=== PATIENT | male | born 1975 | race Caucasian/White ===

== ENCOUNTER 2018-04-06 07:38 | Emergency (ER) | payer SELFPAY ==
[2018-04-06 07:46] VITALS: BP 136/84
[2018-04-06] MEDS: Ketorolac 60 MG/2 ML SDV IM ONE (07:54)
--- NOTE | 2018-04-06 09:57 | EDM.PDOC ---
ED HPI GENERAL MEDICAL PROBLEM - General Chief Complaint: Back Pain or Injury Stated Complaint: FALL Time Seen by Provider: 04/06/18 07:44 Source of Information: Reports: Patient History Limitations: Reports: No Limitations - History of Present Illness INITIAL COMMENTS - FREE TEXT/NARRATIVE: Wilson is a 43 yo male who presents to the ER this morning with complaints of low back pain after slipping down a couple of stairs last night. He admits he was out drinking at a local bar and when he came home he must have hit his low back on the steps. He denies any loss of consciousness. No current headache or trauma to the head. States he went to bed and after about an hour his back was giving him a lot of discomfort. He decided this morning to come in to have it evaluated. States he feels as if he is having muscle spasms in his back. Admits walking seems to give him relief and when he is sitting or laying down it is the worst. Denies any saddle anesthesia. States he has no numbness or tingling in the legs. No weakness. Location: Reports: Back Middle Back Pain Score (Numeric/FACES): 10 - Related Data Allergies Allergy/AdvReac Type Severity Reaction Status Date / Time No Known Allergies Allergy Verified 04/06/18 07:56 Home Meds: Home Meds . [No Known Home Meds] 04/06/18 [History] Past Medical History - Past Health History Medical/Surgical History: Denies Medical/Surgical History - Past Surgical History GI Surgical History: Reports: Colostomy, Other (See Below) Other GI Surgeries/Procedures: colostomy with recersal as a baby Social & Family History - Family History Family Medical History: Noncontributory - Tobacco Use Smoking Status *Q: Never Smoker - Caffeine Use Caffeine Use: Reports: None - Alcohol Use Days Per Week of Alcohol Use: 1 Number of Drinks Per Day: 6 Total Drinks Per Week: 6 - Recreational Drug Use Recreational Drug Use: No ED ROS GENERAL - Review of Systems Review Of Systems: ROS reveals no pertinent complaints other than HPI. Musculoskeletal: Reports: Back Pain, Muscle Stiffness Neurological: Reports: No Symptoms. Denies: Confusion, Dizziness, Headache, Numbness, Paresthesia, Syncope, Tingling, Difficulty Walking, Weakness, Change in Speech ED EXAM,LOWER BACK PAIN/INJURY - Physical Exam Exam: See Below Exam Limited By: No Limitations General Appearance: Alert, No Apparent Distress Eye Exam: Bilateral Eye: EOMI, Normal Inspection Ears: Normal External Exam, Normal Canal, Hearing Grossly Normal Nose: Normal Inspection, Normal Mucosa, No Blood Throat/Mouth: Normal Inspection, Normal Lips, Normal Teeth, Normal Gums, Normal Oropharynx, Normal Voice, No Airway Compromise Head: Atraumatic, Normocephalic Neck: Normal Inspection, Supple, Non-Tender, Full Range of Motion. No: Tender Lateral, Tender Midline Respiratory/Chest: No Respiratory Distress, Normal Breath Sounds, No Accessory Muscle Use Cardiovascular: Regular Rate, Rhythm, No Murmur Back Exam: Full Range of Motion (increased discomfort with flexion and left lateral rotation of lumbar spine), Muscle Spasm, Paraspinal Tenderness, Vertebral Tenderness (L4-L5) Neurological: Alert, Normal Mood/Affect, Normal Dorsiflexion, CN II-XII Intact, Normal Plantar Flexion, Normal Reflexes, No Motor/Sensory Deficits, Oriented x 3 DTR - Lower Extremities: 1+: Knee (R), Knee (L), Ankle (R), Ankle (L) Psychiatric: Normal Affect, Normal Mood Skin Exam: Warm, Dry, Intact, Normal Color Course - Vital Signs Last Recorded V/S: Last Vital Signs Temp 98.2 F 04/06/18 07:44 Pulse 110 H 04/06/18 07:44 Resp 20 04/06/18 07:44 BP 136/84 04/06/18 07:44 Pulse Ox 95 04/06/18 07:44 - Orders/Labs/Meds Orders: Active Orders 24 hr Category Date Time Status Lumbar Spine 2 or 3V [CR] Stat Exams 04/06/18 07:49 Taken Meds: Medications Discontinued Medications Generic Name Dose Route Start Last Admin Trade Name Antonyq PRN Reason Stop Dose Admin Ketorolac Tromethamine 60 mg 04/06/18 07:48 04/06/18 07:54 Toradol IM 04/06/18 07:49 60 mg ONETIME ONE Administration Orphenadrine Citrate 60 mg 04/06/18 08:15 04/06/18 08:13 Norflex IM 60 mg Q12H LYN Administration Departure - Departure Time of Disposition: 09:51 Disposition: Home, Self-Care 01 Clinical Impression: Anterolisthesis - Discharge Information Instructions: Spondylolisthesis, Muscle Strain, [id number] Referrals: Jh Regalado MD [Primary Care Provider] - Forms: ED Department Discharge Additional Instructions: 1) X-ray report showed Grade 1 anterolisthesis 2) Will treat conservatively 3) Physical therapy form given and advise scheduling appointment 4) Toradol 10mg - 1 tablet every 8 hours as needed for discomfort 5) Flexeril 10mg - 1 tablet every 8 hours as needed for muscle spasms. 6) if any worsening of symptoms, numbness, tingling, loss of bowel or bladder function, advise returning immediately for reeavuation. 7) May ice area 20 minutes at a time, 5 times a day. 8) Medications called into [facility] - Problem List & Annotations (1) Anterolisthesis SNOMED Code(s): 477627195 Code(s): M43.10 - SPONDYLOLISTHESIS, SITE UNSPECIFIED Status: Acute Current Visit: Yes - Problem List Review Problem List Initiated/Reviewed/Updated: Yes - My Orders Last 24 Hours: My Active Orders 04/06/18 07:49 Lumbar Spine 2 or 3V [CR] Stat - Assessment/Plan Last 24 Hours: My Active Orders 04/06/18 07:49 Lumbar Spine 2 or 3V [CR] Stat Plan: X-ray confirmed anterolisthesis Grade 1 and will initially treat conservatively. Physical therapy referral. Toradol and flexeril for discomfort and muscle spasm. Wilson is doing a lot better with IM injections of Toradol and Norflex, states he is ready to go home. Was able to void without any complications. Will discharge home at this time. See additional instructions.
== END 2018-04-06 10:10 | disposition home or self-care (01) ==
LOC: CC.ED 07:38
DX: M43.16 Spondylolisthesis, lumbar region (principal)
CPT/HCPCS: 72100; 96372; 99283; J1885; J2360

== ENCOUNTER 2019-07-25 18:05 | Emergency (ER) | payer BC, OTHER ==
[2019-07-25] MEDS ORDERED: Acetaminophen/HYDROcodone 325-5 MG Tab PO ONE (18:06)
[2019-07-25] MEDS: Take Home: Acetaminophen/HYDROcodone 325-5 MG, 2 Tab Pack PO ONE (19:15)
--- NOTE | 2019-07-25 20:58 | EDM.PDOC ---
ED HPI GENERAL MEDICAL PROBLEM - General Chief Complaint: Genitourinary Problem Stated Complaint: right groin pain Time Seen by Provider: 07/25/19 18:25 Source of Information: Reports: Patient History Limitations: Reports: No Limitations - History of Present Illness INITIAL COMMENTS - FREE TEXT/NARRATIVE: Wilson is a 44 yo male who presents to the ED with concerns of right groin pain. He admits he was wrestling at practice when a kid fell on him. He admits he fell on the outside of his femur as he was stepping away and is concerned he strained or tore his groin muscle. Patient states he heard a pop. Admits when he tries to flex his hip or rotate it out the pain worsens. Is able to bear weight but seems to get worse with ambulation. Right Groin Pain Score (Numeric/FACES): 6 - Related Data Allergies Allergy/AdvReac Type Severity Reaction Status Date / Time No Known Allergies Allergy Verified 07/25/19 18:47 Home Meds: Home Meds . [No Known Home Meds] 04/06/18 [History] Past Medical History - Past Health History Medical/Surgical History: Denies Medical/Surgical History - Past Surgical History GI Surgical History: Reports: Colostomy, Other (See Below) Other GI Surgeries/Procedures: colostomy with recersal as a baby Social & Family History - Family History Family Medical History: Noncontributory - Tobacco Use Smoking Status *Q: Former Smoker Used Tobacco, but Quit: Yes Month/Year Tobacco Last Used: Unsure Second Hand Smoke Exposure: No - Caffeine Use Caffeine Use: Reports: None Review of Systems - Review of Systems Review Of Systems: Comprehensive ROS is negative, except as noted in HPI. ED EXAM, GENERAL - Physical Exam Exam: See Below Exam Limited By: No Limitations General Appearance: Alert, No Apparent Distress Extremities: No Pedal Edema, Other (tenderness with palpation over groin along crease/ joint of hip on the right. Pain noticed with adduction with resistance. No external rotation of hip. Non tender to lateral aspect of hip. Gait coordinated with favoring of right lower extremity. ) Neurological: Alert, Oriented, No Motor/Sensory Deficits Psychiatric: Normal Affect, Normal Mood Skin Exam: Warm, Dry, Intact Course - Vital Signs Last Recorded V/S: Last Vital Signs Temp 97.6 F 07/25/19 18:15 Pulse 106 H 07/25/19 18:15 Resp 20 07/25/19 18:15 BP 103/43 L 07/25/19 18:15 Pulse Ox 98 07/25/19 18:15 - Orders/Labs/Meds Orders: Active Orders 24 hr Category Date Time Status Hip Min 2V or 3V Rt [CR] Stat Exams 07/25/19 18:35 Taken Meds: Medications Discontinued Medications Generic Name Dose Route Start Last Admin Trade Name Jodie PRN Reason Stop Dose Admin Hydrocodone Bitart/Acetaminophen 2 packet 07/25/19 19:03 07/25/19 19:15 Take Home: Acetaminophen/Hydrocod, 2 Tab Pack PO 07/25/19 19:04 2 packet ONETIME ONE Administration Departure - Departure Time of Disposition: 19:55 Disposition: Home, Self-Care 01 Clinical Impression: Injury of adductor muscle and tendon of right thigh Qualifiers: Encounter type: initial encounter Qualified Code(s): S76.201A - Unspecified injury of adductor muscle, fascia and tendon of right thigh, initial encounter - Discharge Information Instructions: Adductor Muscle Strain Referrals: Jh Regalado MD [Primary Care Provider] - Forms: ED Department Discharge Additional Instructions: 1) Ice 20 minutes at a time, at least 5 times a day 2) Activity modifications - no participating in wrestling 3) NSAID's recommended 3 times a day - 400 - 800mg at a time of ibuprofen, advise taking with food 4) [place] 5/325 - 1 tablet every 6 hours as needed for break thru pain 5) Follow up if symptoms persist or worsen. 6) Form given for physical therapy. Sepsis Event Note - Evaluation Sepsis Screening Result: No Definite Risk - Focused Exam Vital Signs: Vital Signs Temp Pulse Resp BP Pulse Ox 07/25/19 18:15 97.6 F 106 H 20 103/43 L 98 Date Exam was Performed: 07/25/19 Time Exam was Performed: 20:52 - Problem List & Annotations (1) Injury of adductor muscle and tendon of right thigh SNOMED Code(s): 037772478 Code(s): S76.201A - UNSP INJURY OF ADDUCTOR MUSC/FASC/TEND RIGHT THIGH, INIT Status: Acute Qualifiers: Encounter type: initial encounter Qualified Code(s): S76.201A - Unspecified injury of adductor muscle, fascia and tendon of right thigh, initial encounter - My Orders Last 24 Hours: My Active Orders 07/25/19 18:35 Hip Min 2V or 3V Rt [CR] Stat - Assessment/Plan Last 24 Hours: My Active Orders 07/25/19 18:35 Hip Min 2V or 3V Rt [CR] Stat Plan: X-ray of the right hip was negative. Discussed conservative treatment initially as mainstay of treatment. Referral to physical therapy. Discussed use of crutches, which he declined.
== END 2019-07-25 19:15 | disposition home or self-care (01) ==
LOC: CC.ED 18:05
DX: S76.201A Unspecified injury of adductor muscle, fascia and tendon of right thigh, initial encounter (principal); W50.0XXA Accidental hit or strike by another person, initial encounter; Y93.72 Activity, wrestling
CPT/HCPCS: 99283-25; A9270-GY

== ENCOUNTER 2021-02-15 16:10 | Emergency (ER) | payer OTHER ==
[2021-02-15 16:51] LABS: CHLORIDE,CL 102 mEq/L (98-106); SODIUM,NA 141 mEq/L (136-145)
--- NOTE | 2021-02-15 16:59 | EDM.PDOC ---
ED HPI GENERAL MEDICAL PROBLEM - General Chief Complaint: Abdominal Pain Stated Complaint: RLQ abdominal pain and diarrhea Time Seen by Provider: 02/15/21 16:16 Source of Information: Reports: Patient History Limitations: Reports: No Limitations - History of Present Illness INITIAL COMMENTS - FREE TEXT/NARRATIVE: This patient is a 46 year old male patient that presents to the ER with girlfriend and mother. The patient reports that last night at about 11pm he started having RLQ abdominal pain. Patient reports he has been having some constipation. Patient reports that he called his PCP today and was instructed to take Miralax. He reports after taking, his abdominal pain stayed the same and now he has diarrhea. Patient reports he was at the [place] this morning and his abdominal pain became worse. He reports he went to [facility], waited 1 hour in waiting room and left to come here. Patient reports some nausea. Patient denies v, f, chest pain, shortness of breath, back pain, urinary changes. Onset Date: 02/14/21 Onset Time: 23:00 Location: Reports: Abdomen Quality: Reports: Stabbing Severity: Mild Improves with: Reports: None Worsens with: Reports: None Associated Symptoms: Reports: Nausea/Vomiting. 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 [No Known Home Meds] 04/06/18 [History] Past Medical History - Past Health History Medical/Surgical History: Denies Medical/Surgical History Gastrointestinal History: Reports: Chronic Constipation - Past Surgical History GI Surgical History: Reports: Colostomy, Other (See Below) Other GI Surgeries/Procedures: colostomy with reversal as a baby Musculoskeletal Surgical History: Reports: Other (See Below) Other Musculoskeletal Surgeries/Procedures:: knee surgery Social & Family History - Family History Family Medical History: No Pertinent Family History - Tobacco Use Tobacco Use Status *Q: Unknown Ever Used Tobacco - Caffeine Use Caffeine Use: Reports: None ED ROS GENERAL - Review of Systems Review Of Systems: See Below Constitutional: Reports: No Symptoms HEENT: Reports: No Symptoms Respiratory: Reports: No Symptoms Cardiovascular: Reports: No Symptoms Endocrine: Reports: No Symptoms GI/Abdominal: Reports: Abdominal Pain, Constipation, Diarrhea (after Miralax), Nausea. Denies: Bloody Stool, Decreased Appetite, Distension, Flatus, Hematemesis, Vomiting : Reports: No Symptoms Musculoskeletal: Reports: No Symptoms Skin: Reports: No Symptoms Neurological: Reports: No Symptoms Psychiatric: Reports: No Symptoms Hematologic/Lymphatic: Reports: No Symptoms Immunologic: Reports: No Symptoms ED EXAM, GI/ABD - Physical Exam Exam: See Below Exam Limited By: No Limitations General Appearance: Alert, WD/WN, No Apparent Distress Eyes: Bilateral: Normal Appearance Ears: Normal External Exam, Normal Canal, Hearing Grossly Normal, Normal TMs Nose: Normal Inspection, Normal Mucosa, No Blood Throat/Mouth: Normal Inspection, Normal Lips, Normal Teeth, Normal Gums, Normal Oropharynx, Normal Voice, No Airway Compromise Head: Atraumatic, Normocephalic Neck: Normal Inspection, Supple, Non-Tender, Full Range of Motion Respiratory/Chest: No Respiratory Distress, Lungs Clear, Normal Breath Sounds, No Accessory Muscle Use Cardiovascular: Normal Peripheral Pulses, Regular Rate, Rhythm, No Edema, No Gallop, No JVD, No Murmur, No Rub GI/Abdominal Exam: Normal Bowel Sounds, Soft, No Organomegaly, No Distention, No Abnormal Bruit, No Mass, Pelvis Stable, Tender (RLQ, LLQ. ), Other (previous abd surgeries, colonoscopy with reversal. ). No: Distended, Guarding, Rigid, Rebound, Hepatomegaly (Male) Exam: Deferred Rectal (Males) Exam: Deferred Back Exam: Normal Inspection, Full Range of Motion. No: CVA Tenderness (L), CVA Tenderness (R) Extremities: Normal Inspection, Normal Range of Motion, Non-Tender, No Pedal Edema, Normal Capillary Refill Neurological: Alert, Oriented, Normal Cognition, Normal Gait, No Motor/Sensory Deficits Psychiatric: Normal Affect, Normal Mood Skin Exam: Warm, Dry, Intact, Normal Color, No Rash Lymphatic: No Adenopathy Course - Vital Signs Last Recorded V/S: Last Vital Signs Temp 96.9 F 02/15/21 16:15 Pulse 72 02/15/21 16:15 Resp 18 02/15/21 16:15 BP 154/93 H 02/15/21 16:15 Pulse Ox 96 02/15/21 16:15 - Orders/Labs/Meds Orders: Active Orders 24 hr Category Date Time Status Abdomen Pelvis w Cont [CT] Stat Exams 02/15/21 16:51 Taken Sodium Chloride 0.9% [Normal Saline] 500 ml Med 02/15/21 17:00 Active IV .BOLUS Medication Orders Sodium Chloride (Normal Saline) 500 mls @ 500 mls/hr IV .BOLUS LYN Last Admin: 02/15/21 17:46 Dose: 500 mls/hr Documented by: PAOLA Labs: Laboratory Tests 02/15/21 02/15/21 02/15/21 Range/Units 16:17 16:35 16:35 WBC 8.1 (4.0-11.0) 10^3/uL RBC 5.08 (4.50-6.00) x10^6/uL Hgb 14.8 (14.0-18.0) g/dL Hct 43.6 (42.0-52.0) % MCV 85.8 (83.0-97.0) fL MCH 29.1 (27.0-32.0) pg MCHC 33.9 (32.0-36.0) g/dL RDW Coeff of Jeromy 11.7 (11.0-15.0) % Plt Count 192 (150-400) 10^3/uL Immature Gran % (Auto) 0.2 (0.0-4.9) % Neut % (Auto) 63.6 (41-71) % Lymph % (Auto) 25.9 (24-44) % Walsh % (Auto) 9.0 (0-10) % Eos % (Auto) 0.9 (0-6) % Baso % (Auto) 0.4 (0-1) % Neut # (Auto) 5.17 (1.80-8.00) x10^3/uL Lymph # (Auto) 2.10 (0.60-5.00) 10^3/uL Walsh # (Auto) 0.73 (0.00-1.50) 10^3/uL Eos # (Auto) 0.07 (0.00-1.50) 10^3/uL Baso # (Auto) 0.03 (0.00-0.50) 10^3/uL Immature Gran # (Auto) 0.02 (0.00-0.49) 10^3/uL Sodium 141 (136-145) mEq/L Potassium 4.1 (3.5-5.0) mEq/L Chloride 102 (98-106) mEq/L Carbon Dioxide 31 (21-32) mmol/L BUN 11 (7-18) mg/dL Creatinine 1.1 (0.7-1.3) mg/dL Est Cr Clr Drug Dosing 94.06 mL/min Estimated GFR (MDRD) > 60 (>=60) mL/min Glucose 92 (75-99) mg/dL Calcium 8.9 (8.4-10.1) mg/dL Total Bilirubin 0.6 (0.0-1.0) mg/dL AST 40 H (15-37) U/L ALT 85 H (12-78) U/L Alkaline Phosphatase 67 (46-116) U/L C-Reactive Protein 0.2 (0.2-0.8) mg/dL Total Protein 7.7 (6.4-8.2) g/dL Albumin 4.0 (3.4-5.0) g/dL Amylase 36 (25-115) U/L Lipase 46 L (73-393) U/L Urine Color Yellow (YELLOW) Urine Appearance Clear (CLEAR) Urine pH 8.5 H (4.5-8.0) Ur Specific Wilmot 1.020 (1.003-1.020) Urine Protein Negative (NEGATIVE) mg/dL Urine Glucose (UA) Negative (NEGATIVE) mg/dL Urine Ketones Negative (NEGATIVE) mg/dL Urine Occult Blood Negative (NEGATIVE) Urine Nitrite Negative (NEGATIVE) Urine Bilirubin Negative (NEGATIVE) Urine Urobilinogen 0.2 (0.2-1.0) EU/dL Ur Leukocyte Esterase Negative (NEGATIVE) Meds: Medications Generic Name Dose Route Start Last Admin Trade Name Freq PRN Reason Stop Dose Admin Sodium Chloride 500 mls @ 500 mls/hr 02/15/21 17:00 02/15/21 17:46 Normal Saline IV 500 mls/hr .BOLUS LYN Administration Discontinued Medications Generic Name Dose Route Start Last Admin Trade Name Freq PRN Reason Stop Dose Admin Iopamidol 100 ml 02/15/21 17:25 02/15/21 17:31 Iopamidol 755 Mg/Ml 100 Ml Bottle IVPUSH 02/15/21 17:26 100 ml ONETIME ONE Administration - Radiology Interpretation Free Text/Narrative:: Abd/Pelvis with contrast: No acute findings CT Results Date: 02/15/21 CT Results Time: 17:47 Departure - Departure Time of Disposition: 17:50 Disposition: Home, Self-Care 01 Condition: Good Clinical Impression: Abdominal pain Qualifiers: Abdominal location: right lower quadrant Qualified Code(s): R10.31 - Right lower quadrant pain - Discharge Information *PRESCRIPTION DRUG MONITORING PROGRAM REVIEWED*: Not Applicable *COPY OF PRESCRIPTION DRUG MONITORING REPORT IN PATIENT FRANCHESCA: Not Applicable Instructions: Abdominal Pain, Adult, [id number] Referrals: Lobo Coombs NP [Primary Care Provider] - Forms: ED Department Discharge Additional Instructions: Followup with your primary care provider Return to the ER for worsening of condition or any emergent concerns Increase fluid intake Sepsis Event Note (ED) - Evaluation Sepsis Screening Result: No Definite Risk - Focused Exam Vital Signs: Vital Signs Temp Pulse Resp BP Pulse Ox 02/15/21 16:15 96.9 F 72 18 154/93 H 96 - My Orders Last 24 Hours: My Active Orders 02/15/21 16:51 Abdomen Pelvis w Cont [CT] Stat 02/15/21 17:00 Sodium Chloride 0.9% [Normal Saline] 500 ml IV .BOLUS - Assessment/Plan Last 24 Hours: My Active Orders 02/15/21 16:51 Abdomen Pelvis w Cont [CT] Stat 02/15/21 17:00 Sodium Chloride 0.9% [Normal Saline] 500 ml IV .BOLUS Plan: PLEASE SEE RN NOTE FOR PFSH.
[2021-02-15] MEDS: Iopamidol 755 Mg/ML 100 ML Bottle IVPUSH ONE (17:31)
[2021-02-15] MEDS: Sodium Chloride 0.9% 500 ML IV SCH (17:46)
== END 2021-02-15 18:30 | disposition home or self-care (01) ==
LOC: CC.ED 16:10
DX: R10.31 Right lower quadrant pain (principal); R10.813 Right lower quadrant abdominal tenderness; R10.814 Left lower quadrant abdominal tenderness
CPT/HCPCS: 36415; 74177; 80053; 81003; 82150; 83690; 85025; 86140; 99284; J7040; Q9967

== ENCOUNTER 2021-07-02 10:47 | Emergency (ER) | payer OTHER ==
[2021-07-02] MEDS: Ketorolac 30 MG/ML SDV IVPUSH ONE (11:34)
[2021-07-02] MEDS: Acetaminophen 500 MG Tab PO ONE (11:39)
--- NOTE | 2021-07-02 11:43 | EDM.PDOC ---
ED HPI GENERAL MEDICAL PROBLEM - General Chief Complaint: Back Pain or Injury Stated Complaint: FELL Time Seen by Provider: 07/02/21 11:05 Source of Information: Reports: Patient - History of Present Illness INITIAL COMMENTS - FREE TEXT/NARRATIVE: Was stepping onto a [employer] vehicle, slipped, landed on right uppr back. Has abrasion. Denies hitting head, loss of consciousness, or any other injury. Den ies need for narcotic pain meds at present. Speaking in full sentences, breath sounds heard in all dey. Onset: Today, Sudden Onset Date: 07/02/21 Onset Time: 10:30 Duration: Constant Location: Reports: Back Front/Back Body Image: 1 - abrasion and pain Quality: Reports: Ache Severity: Moderate Improves with: Reports: None Worsens with: Reports: Movement Context: Reports: Activity, Trauma Associated Symptoms: Reports: No Other Symptoms Treatments CARE TECH: Reports: Other (see below) (none) Back Pain Score (Numeric/FACES): 10 - Related Data Allergies Allergy/AdvReac Type Severity Reaction Status Date / Time No Known Allergies Allergy Verified 02/15/21 16:15 Home Meds: Home Meds . [No Known Home Meds] 04/06/18 [History] Past Medical History - Past Health History Medical/Surgical History: Denies Medical/Surgical History Gastrointestinal History: Reports: Chronic Constipation - Past Surgical History GI Surgical History: Reports: Colostomy, Other (See Below) Other GI Surgeries/Procedures: colostomy with reversal as a baby Musculoskeletal Surgical History: Reports: Other (See Below) Other Musculoskeletal Surgeries/Procedures:: knee surgery; ACL reconstruction 04/28/2021 left Social & Family History - Family History Family Medical History: No Pertinent Family History - Caffeine Use Caffeine Use: Reports: None ED ROS GENERAL - Review of Systems Review Of Systems: Comprehensive ROS is negative, except as noted in HPI. ED EXAM, GENERAL - Physical Exam Exam: See Below Exam Limited By: No Limitations General Appearance: Alert, No Apparent Distress Eye Exam: Bilateral Eye: EOMI, Normal Inspection Ears: Normal External Exam Nose: Normal Inspection, Normal Mucosa, No Blood Throat/Mouth: Normal Voice, No Airway Compromise Head: Atraumatic, Normocephalic Neck: Normal Inspection, Supple, Non-Tender, Full Range of Motion Respiratory/Chest: No Respiratory Distress, Lungs Clear, Normal Breath Sounds, No Accessory Muscle Use, Chest Non-Tender Cardiovascular: Normal Peripheral Pulses, Regular Rate, Rhythm GI/Abdominal: Normal Bowel Sounds, Soft, Non-Tender, No Distention Back Exam: Other (painful to right upper back) Extremities: Normal Inspection, Normal Range of Motion, Non-Tender, No Pedal Edema, Normal Capillary Refill Neurological: Alert, Oriented, Normal Cognition, Normal Gait, No Motor/Sensory Deficits Psychiatric: Normal Affect, Normal Mood Skin Exam: Warm, Dry, Normal Color, Wound/Incision (abrasion right upper back) Lymphatic: No Adenopathy Course - Vital Signs Last Recorded V/S: Last Vital Signs Temp 96.5 F L 07/02/21 11:26 Pulse 110 H 07/02/21 11:26 Resp 20 07/02/21 11:26 BP 124/93 H 07/02/21 11:26 Pulse Ox 96 07/02/21 11:26 - Orders/Labs/Meds Orders: Active Orders 24 hr Category Date Time Status Ribs 2V w Chest Rt [CR] Stat Exams 07/02/21 11:14 Ordered Bacitracin [Bacitracin Oint] Med 07/02/21 14:00 Active 1 gm TOP TID Medication Orders Bacitracin (Bacitracin Oint 28.35 Gm Tube) 1 gm TOP TID LYN Meds: Medications Generic Name Dose Route Start Last Admin Trade Name Freq PRN Reason Stop Dose Admin Bacitracin 1 gm 07/02/21 14:00 Bacitracin Oint 28.35 Gm Tube TOP TID LYN Discontinued Medications Generic Name Dose Route Start Last Admin Trade Name Freq PRN Reason Stop Dose Admin Acetaminophen 1,000 mg 07/02/21 11:36 Acetaminophen 500 Mg Tab PO 07/02/21 11:37 ONETIME ONE Ketorolac Tromethamine 30 mg 07/02/21 11:28 07/02/21 11:34 Ketorolac 30 Mg/Ml Sdv IVPUSH 07/02/21 11:29 30 mg ONETIME ONE Administration - Re-Assessments/Exams Free Text/Narrative Re-Assessment/Exam: 07/02/21 11:52 Xray reveals no acute abnormalities. States ketorolac helped, but still in pain. Morphine 2mg ordered. Has a clamp truck driver. 07/02/21 11:58 07/02/21 12:09 States feels much better. Departure - Departure Time of Disposition: 12:10 Disposition: Home, Self-Care 01 Condition: Good Clinical Impression: Contusion - Discharge Information Instructions: Contusion, [id number] Forms: ED Department Discharge Additional Instructions: Ibuprofen and Tylenol. Wait at least 8 hours before starting ibuprofen. Bacitracin to abrasion. Ice packs. Deep breathe and cough. Avoid painful activities. Follow up with your Primary Care Provider if condition worsens or does not resolve. Sepsis Event Note (ED) - Focused Exam Vital Signs: Vital Signs Temp Pulse Resp BP Pulse Ox 07/02/21 11:26 96.5 F L 110 H 20 124/93 H 96 - Problem List & Annotations (1) Contusion SNOMED Code(s): 462081601 Code(s): T14.8XXA - OTHER INJURY OF UNSPECIFIED BODY REGION, INITIAL ENCOUNTER Status: Acute Qualifiers: Encounter type: initial encounter Contusion area: thoracic wall Front or back of thoracic wall: back Thoracic wall location detail: right Qualified Code(s): S20.221A - Contusion of right back wall of thorax, initial encounter - Problem List Review Problem List Initiated/Reviewed/Updated: Yes - My Orders Last 24 Hours: My Active Orders 07/02/21 11:14 Ribs 2V w Chest Rt [CR] Stat 07/02/21 14:00 Bacitracin [Bacitracin Oint] 1 gm TOP TID - Assessment/Plan Last 24 Hours: My Active Orders 07/02/21 11:14 Ribs 2V w Chest Rt [CR] Stat 07/02/21 14:00 Bacitracin [Bacitracin Oint] 1 gm TOP TID
[2021-07-02] MEDS: Morphine 2 MG/ML SYRINGE IVPUSH ONE (11:55)
[2021-07-02] MEDS: Bacitracin Oint 28.35 GM Tube TOP SCH ×2 (12:00→12:01)
[2021-07-02] MEDS: Bacitracin/Neomycin/Polymyxin B Oint 28.4 GM Tube ONE (12:11)
== END 2021-07-02 12:10 | disposition home or self-care (01) ==
LOC: CC.ED 10:47
DX: S20.221A Contusion of right back wall of thorax, initial encounter (principal); W22.09XA Striking against other stationary object, initial encounter
CPT/HCPCS: 71101-RT; 96374; 96375; 99283-25; A9270-GY; J1885; J2270

== ENCOUNTER 2023-04-29 02:40 | Emergency (ER) | payer OTHER ==
[2023-04-29] MEDS ORDERED: Tetracaine HCl/PF 0.5% 4 ML Bottle EYEBOTH ONE (02:59)
[2023-04-29] MEDS ORDERED: Erythromycin Base 0.5% Ophth Oint 1 GM Tube EYEBOTH ONE (03:07)
== END 2023-04-29 03:20 | disposition home or self-care (01) ==
LOC: CC.ED 02:40
DX: S05.01XA Injury of conjunctiva and corneal abrasion without foreign body, right eye, initial encounter (principal); X58.XXXA Exposure to other specified factors, initial encounter
CPT/HCPCS: 99282; A9270